=== PATIENT | male | born 1955 | race Hispanic/Latino ===

== ENCOUNTER 2017-01-28 09:18 | Outpatient (CLI) | payer MEDICAID ==
--- NOTE | 2017-01-28 10:14 | Cat Scan Report ---
CT OF THE ABDOMEN AND PELVIS WITHOUT CONTRAST HISTORY: Calculus of kidney. TECHNIQUE: Helical CT without contrast. Sagittal and coronal reformatted images. FINDINGS: Both kidneys are normal size, contour and position. A solitary punctate calyceal stone is identified at the inferior pole of the right kidney. There are 3 punctate calyceal stones in the superior, mid and inferior left kidney. No evidence for ureteral stones or hydronephrosis. 3 or 4 parapelvic cysts are noted in the left renal sinus measuring up to 2 cm in greatest dimension. No suggestion of renal mass or fluid. Within the limits of a noncontrast exam, the remaining abdominal and pelvic viscera are within normal limits. The liver, biliary system, pancreas, spleen, adrenal glands and bladder are unremarkable. The bowel loops are normal caliber and wall thickness. The appendix is not clearly identified. The aorta is normal caliber. No ascites, bulky adenopathy or inflammatory changes. The lung bases are clear. Normal heart size. No suspicious bony lesion. IMPRESSION: Punctate bilateral renal stones as described above. No ureteral stones or hydronephrosis. Simple parapelvic cysts in the left renal sinus.
== END 2017-01-28 09:19 | disposition home or self-care (01) ==
LOC: CT 09:18
PROVIDERS: ATTEND Urology
DX: N20.0 Calculus of kidney (principal); N28.1 Cyst of kidney, acquired
CPT/HCPCS: 74176